=== PATIENT | male | born 1990 | race Caucasian/White ===

== ENCOUNTER 2018-01-10 15:30 | Emergency (ER) | payer OTHER ==
[2018-01-10 15:42] VITALS: BP 123/78
--- NOTE | 2018-01-10 17:11 | EDPHY ---
General Time Seen by Provider: 01/10/18 16:39 Narrative: CHIEF COMPLAINT: Right calf pain HISTORY OF PRESENT ILLNESS: Patient complains of right calf pain. Pain started approximately 2 days ago. It is primarily in the calf. It does radiate down to the foot and ankle. There is some swelling associated with. He reports an injury to the calf between 1 and 2 weeks ago while playing flag football. He accidentally struck his calf with stops sickly completed he is concern for DVT. He has had no fever , signs of infection, complaints of illness, bleeding or any other complaints of the leg. He is here primarily to make sure does not have a DVT. No history of DVT. He has not take any testosterone. No other associated complaints or modifying factors. ESTABLISHED ORTHOPEDIST: None REVIEW OF SYSTEMS: Ten systems reviewed and are negative unless otherwise noted in the HPI PAST MEDICAL HISTORY: Uncomplicated PAST SURGICAL HISTORY: No recent surgeries SOCIAL HISTORY: Nonsmoker. Lives and works here independently. FAMILY HISTORY: Noncontributory EXAMINATION General Appearance: Alert, no distress Cardiovascular: Symmetric radial pulses 2+. Symmetric DP pulses 2+. Good signs of perfusion of both extremities. Neurological: A&O, sensation to the plantar surfaces symmetric. Strength of the great toe symmetric. No footdrop. Skin: Warm and dry, no rash. No petechiae or purpura. No edema. No cellulitis, crepitus, fluctuance Extremities: Minimal tenderness of the right calf. The circumference of the calves is symmetric. There is minimal edema of the right ankle. There is some tenderness of the Achilles tendon. There is negative Simon test. Full range of motion of the ankles that is symmetric. Compartments are all soft in the lower extremities symmetrically. Psychiatric: Mood and affect normal DIFFERENTIAL DIAGNOSES: Including but not limited to muscular strain, lower extremity edema, pedal edema , Achilles tendinitis MDM: 5:10 p.m. Right lower extremity pain and swelling over the past 2 days. No evidence of DVT on the ultrasound. No evidence of compartment syndrome by examination. He has symmetric pulses and fully ambulatory without difficulty. Suspect soft tissue strain versus muscular cramping versus Achilles tendinitis. I discussed light activity for the next few days. Discussed elevation anti-inflammatories. I offered a Robin boot and he has declined. We discussed checking a CPK level should his symptoms worsen. 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 He is comfortable this plan and discharged home stable condition. SUPERVISION: This patient was independently evaluated without direct involvement of or examination by the attending physician. ED Precautions: Worsening pain. Erythema, edema, cyanosis, pallor, paresthesia or anesthesia. Addendum Patient's vital signs to documented a pulse ox of 3. His pulse oximetry was 93 % on room air. - History Smoking Status: Never smoked - Objective Vital Signs: Initial Vital Signs Temperature (C) 97.9 F 01/10/18 15:37 Heart Rate 94 01/10/18 15:37 Respiratory Rate 16 01/10/18 15:37 Blood Pressure 123/78 H 01/10/18 15:37 O2 Sat (%) 3 L 01/10/18 15:37 O2 Delivery Mode Room Air Allergies/Adverse Reactions: Penicillins Allergy (Verified 01/10/18 15:44) Home Medications: Medication Instructions Recorded NK [No Known Home Meds] 01/10/18 Departure - Departure Disposition: Home, Routine, Self-Care Clinical Impression: Right calf pain Achilles tendinitis Qualifiers: Laterality: right Qualified Code(s): M76.61 - Achilles tendinitis, right leg Condition: Good Instructions: Leg Cramps (ED), Muscle Cramp (ED) Additional Instructions: 1. Ice and elevation 2. Compression stockings as needed for swelling 3. Follow up blood a primary care physician for further evaluation 4. Return to ED for redness, increased swelling, warmth Referrals: NONE *PRIMARY CARE P,. [Primary Care Provider] - As per Instructions
== END 2018-01-10 17:16 | disposition home or self-care (01) ==
DX: M76.61 Achilles tendinitis, right leg (principal)